=== PATIENT | female | born 1975 | race Caucasian/White ===

== ENCOUNTER 2016-09-12 14:50 | Emergency (ER) | payer OTHER ==
[2016-09-12 14:56] VITALS: BMI 18.3
[2016-09-12] MEDS ORDERED: ACETAMINOPHEN 325 MG TABLET (FP) PO ONE (14:57)
[2016-09-12] MEDS ORDERED: FAMOTIDINE 20 MG/50 ML IVPB 50 ML IVPB ONE ×2 (14:57→15:23)
[2016-09-12] MEDS ORDERED: MAG HYDROX/AL HYDROX/SIMETH 30 ML UNIT-DOSE CUP PO ONE (14:57)
[2016-09-12] MEDS ORDERED: SODIUM CHLORIDE 1,000 ML IV STA (14:57)
--- NOTE | 2016-09-12 15:22 | PDOC ---
[id number] is a 41 year old female with a significant past medical history of of PE a year and a half ago( secondary from childbirth, delivering twins, placed on eliquis at the time ) presents to the emergency department with a complaint of chest pain since two and a half hours ago ago. Patient had woken up in her usual state of health this morning. The Patient was at the supermarket pushing her children and with groceries in two separate strollers when the she had developed a sudden pain in her chest. Patient states the pain was sharp and intense. There was associated numbness and tingling that shot up the left side of her neck. Patient had drank some seltzer water which mildly helped with some of the symptoms. Since the initial development of pain, she has continued to have tightness in her chest , numbness/tingling in her left neck and some pain by her left methodist. Pain is not associated with deep breaths. Movements do not provoke the pain. The pain is not similar to her previous PE. Patient reports some upper abdominal pain. No reports on nausea, vomiting or diarrhea. Denies tobacco use. Patient is currently on antibiotics for a sinus infections. Patient is not on control at this time or extra hormonal. Patient has a family history of heart problems. The patients father had a heart attack in his late 50s. Patient additionally reports having two brothers with heart problems. One brother has an unspecified cardiac problem and the other is on a defibrillator secondary to myocarditis. The patient had an negative echo test recently. PCP: Karen Thomas Office: <Bakari Farmer - Last Filed: 09/12/16 18:32> - General History Source: Patient Exam Limitations: No Limitations <William Lopez - Last Filed: 09/20/16 07:05> - General Chief Complaint: Chest Pain Stated Complaint: CHEST PAIN Time Seen by Provider: 09/12/16 14:54 Past History <Bakari Farmer - Last Filed: 09/12/16 18:32> - Past Medical History Kidney Stones: Yes Psychiatric Problems: Yes (ANXIETY) Other medical history: PE, CHRONIC LYME - Immunization History Immunization Up to Date: Yes - Psycho/Social/Smoking Cessation Hx Anxiety: No Suicidal Ideation: No Smoking Status: No Smoking History: Never smoked Have you smoked in the past 12 months: No Number of Cigarettes Smoked Daily: 0 Information on smoking cessation initiated: No Hx Alcohol Use: No Drug/Substance Use Hx: No Substance Use Type: None <JessicaWilliam - Last Filed: 09/20/16 07:05> - Past Medical History Allergies/Adverse Reactions: Allergies Allergy/AdvReac Type Severity Reaction Status Date / Time doxycycline Allergy Verified 11/21/15 11:57 Penicillins Allergy Verified 11/21/15 11:56 Sulfa (Sulfonamide Allergy Verified 08/25/11 18:32 Antibiotics) Home Medications: Ambulatory Orders Citalopram Hydrobromide [Celexa -] 20 mg PO DAILY 09/12/16 Review of Systems - Review of Systems Able to Perform ROS?: Yes Comments:: 09/12/16 15:26 GENERAL/CONSTITUTIONAL: No fever or chills. No weakness. HEAD, EYES, EARS, NOSE AND THROAT: No change in vision. No ear pain or discharge. No sore throat. CARDIOVASCULAR: Yes chest pain. No shortness of breath. RESPIRATORY: No cough, wheezing, or hemoptysis. GASTROINTESTINAL: No nausea, vomiting, diarrhea or constipation. GENITOURINARY: No dysuria, frequency, or change in urination. MUSCULOSKELETAL: No joint or muscle swelling or pain. No neck or back pain. SKIN: No rash NEUROLOGIC: Yes: Numbness and tingling left side of neck. Yes headache. No vertigo, loss of consciousness, or change in strength. ENDOCRINE: No increased thirst. No abnormal weight change. HEMATOLOGIC/LYMPHATIC: No anemia, easy bleeding, or history of blood clots. ALLERGIC/IMMUNOLOGIC: No hives or skin allergy. Is the patient limited Hungarian proficient: No <Bakari Farmer - Last Filed: 09/12/16 18:32> *Physical Exam - Vital Signs Last Vital Signs Temp Pulse Resp BP Pulse Ox 98.2 F 89 18 112/76 100 09/12/16 14:50 09/12/16 14:50 09/12/16 14:50 09/12/16 14:50 09/12/16 14:50 - Physical Exam Comments: 09/12/16 15:27 GENERAL: Awake, alert, and fully oriented, in no acute distress HEAD: No signs of trauma EYES: PERRLA, EOMI, sclera anicteric, conjunctiva clear ENT: Auricles normal inspection, hearing grossly normal, nares patent, oropharynx clear without exudates. Moist mucosa NECK: Normal ROM, supple, no lymphadenopathy, JVD, or masses LUNGS: Breath sounds equal, clear to auscultation bilaterally. No wheezes, and no crackles HEART: Regular rate and rhythm, normal S1 and S2, no murmurs, rubs or gallops ABDOMEN: Soft, nontender, normoactive bowel sounds. No guarding, no rebound. No masses EXTREMITIES: Normal range of motion, no edema. No clubbing or cyanosis. No cords, erythema, or tenderness NEUROLOGICAL: Cranial nerves II through XII grossly intact. Normal speech, normal gait SKIN: Warm, Dry, normal turgor, no rashes or lesions noted. <aBkari Farmer - Last Filed: 09/12/16 18:32> - Vital Signs Last Vital Signs Temp Pulse Resp BP Pulse Ox 98.2 F 89 18 112/76 100 09/12/16 14:50 09/12/16 14:50 09/12/16 14:50 09/12/16 14:50 09/12/16 14:50 <William Lopez - Last Filed: 09/20/16 07:05> Heart Score/ECG Review - History History: Slightly suspicious - Electrocardiogram EKG: Non specific repolarization disturbance - Age Age: </= 45 - Risk Factors Based on the list above the patient has:: No risk factors known - Troponin Troponin: </= normal limit - Score Heart Score - Total: 1 #1 ECG reviewed & interpreted by me at: 15:05 09/12/16 16:03 NSR 77, incomplete RBBB, no std/minor, normal axis, normal intervals, QTC 454 msec <William Lopez - Last Filed: 09/20/16 07:05> ED Treatment Course - LABORATORY CBC & Chemistry Diagram: 09/12/16 15:15 09/12/16 15:15 - RADIOLOGY Radiology Studies Ordered: 09/12/16 18:[address] Impression: No CT evidence of pulmonary embolism Small right upper lobe calcified granuloma 3-4 noncalcified right lower lobe nodule. Reported by Luis Marin <Bakari Farmer - Last Filed: 09/12/16 18:32> - LABORATORY CBC & Chemistry Diagram: 09/12/16 15:15 09/12/16 15:15 - RADIOLOGY Radiology Studies Ordered: Category Date Time Status CHEST CTA [CT] Stat CT Scan 09/12/16 15:18 Ordered <William Lopez - Last Filed: 09/20/16 07:05> Medical Decision Making - Medical Decision Making 09/12/16 16:13 A portion of this note was documented by scribe services under my direction. I have reviewed the details of the note, within reason, and agree with the documentation with the following case summary and management plan written by me. Patient treated in the ED. Nursing notes are reviewed and incorporated into the medical decision-making. Vital signs reviewed. Peripheral IV access obtained by the nurse, laboratory studies are drawn and sent, reviewed and interpreted by myself. Vital Signs Temp Pulse Resp BP Pulse Ox 98.2 F 89 18 112/76 100 09/12/16 14:50 09/12/16 14:50 09/12/16 14:50 09/12/16 15:30 09/12/16 14:50 41 year old female with history of factor V Leiden deficiency, hx of PEs but not on anticoagulants presents with sharp midsternal chest pain radiating to neck. The patient reports that she was feeling well this morning. In the afternoon, after the patient was pushing a cart, the patient noted a sudden onset of midsternal sharp pain. Not pleuritic but radiates to neck. Denies shortness of breath, nausea, vomiting, diaphoresis. Pt reports that she has older brothers in their late 40s and early 50s with cardiac disease (including one with defibrillator). Pt thought it was her acid reflux, but came into the ED after it kept on persisting. During interview, pt reports feeling moderately better without intervention. The patient's history is atypical for acute coronary syndrome. However, will send troponin. The ECG demonstrates no acute ischemic findings. What is more potentially concerning is PE given sharp chest pain and hx of factor V Leiden deficiency. Will obtain CTA chest to r/o PE and reassess. 09/12/16 18:55 CBC, BMP 09/12/16 15:15 09/12/16 15:15 CMP Sodium 135 mmol/L (136-145) L 09/12/16 15:15 Potassium 3.3 mmol/L (3.5-5.1) L 09/12/16 15:15 Chloride 102 mmol/L (98-107) 09/12/16 15:15 Carbon Dioxide 30 mmol/L (22-28) H 09/12/16 15:15 Anion Gap 3 (8-16) L 09/12/16 15:15 BUN 19 mg/dl (7-18) H 09/12/16 15:15 Creatinine 0.6 mg/dl (0.6-1.3) 09/12/16 15:15 Creat Clearance w eGFR > 60 (>60) 09/12/16 15:15 Random Glucose 99 mg/dl (74-106) D 09/12/16 15:15 Calcium 8.9 mg/dl (8.4-10.2) 09/12/16 15:15 Total Bilirubin 0.6 mg/dl (0.2-1.0) D 09/12/16 15:15 AST 25 U/L (10-42) 09/12/16 15:15 ALT 32 U/L (10-40) 09/12/16 15:15 Alkaline Phosphatase 57 U/L (32-92) D 09/12/16 15:15 Creatine Kinase 88 IU/L (26-140) 09/12/16 17:45 Troponin I < 0.03 ng/ml (0.03-0.50) L 09/12/16 17:45 Total Protein 6.9 g/dl (6.4-8.3) 09/12/16 15:15 Albumin 4.2 g/dl (3.5-5.0) 09/12/16 15:15 Serum , Qual Negative 09/12/16 15:15 Pt had two negative troponins and Chest CTA that demonstrated no PE. Pt informed of the R lower nodule. The patient reports feeling better. Copy of the results given to her. She will follow up with her doctor. Discharge diagnosis: atypical chest pain. <William Lopez - Last Filed: 09/20/16 07:05> *DC/Admit/Observation/Transfer - Attestations Scribe Attestion: 09/12/16 15:27 Documentation prepared by Bakari Farmer, acting as lpn medical assistant for William Lopez MD <Bakari Farmer - Last Filed: 09/12/16 18:32> - Discharge Dispostion Admit: No <William Lopez - Last Filed: 09/20/16 07:05> Diagnosis at time of Disposition: Atypical chest pain - Discharge Dispostion Disposition: HOME Condition at time of disposition: Improved - Referrals Referrals: Karen Thomas MD [Primary Care Provider] - Ayad Quinteros MD [Staff Physician] - - Patient Instructions Printed Discharge Instructions: DI for Atypical Chest Pain Additional Instructions: Please make an appointment with the [facility]. Call to schedule an appointment. Attach is a copy of your EKG, CT scan of your chest, and your blood work. If you have worsening chest pain, or shortness of breath, please return to the ER.
[2016-09-12] MEDS ORDERED: MAG HYDROX/AL HYDROX/SIMETH 30 ML UNIT-DOSE CUP ONE (15:23)
[2016-09-12] MEDS ORDERED: ACETAMINOPHEN 325 MG TABLET (FP) ONE (15:23)
[2016-09-12 15:32] LABS: BASOPHIL 1.5 % (0-2.0); MCH 25.6 pg (25.7-33.7); MCHC 33.3 g/dl (32.0-36.0); MEAN PLT VOLUME 8.2 fl (7.5-11.1); NEUTROPHILS 49.4 % (42.8-82.8); PLATELET COUNT 269 K/MM3 (134-434); RDW 12.9 % (11.6-15.6); WHITE BLOOD COUNT 4.8 K/mm3 (4.0-10.0)
[2016-09-12 15:57] LABS: ACTIVATED PTT 28.3 SECONDS (24.0-38.9)
[2016-09-12 16:01] LABS: ALBUMIN 4.2 g/dl (3.5-5.0); ALK PHOS 57 U/L (32-92); ANION GAP 3 (8-16); BILIRUBIN,TOTAL 0.6 mg/dl (0.2-1.0); CALCIUM 8.9 mg/dl (8.4-10.2); CO2 30 mmol/L (22-28); CPK(DFH) 110 IU/L (26-140); CREATININE 0.6 mg/dl (0.6-1.3); GLUCOSE,RANDOM 99 mg/dl (74-106); INR 1.06 (0.82-1.09); PROTHROMBIN TIME (PATIENT) 11.8 SEC (10.2-13.0); SGOT/AST 25 U/L (10-42); SGPT/ALT 32 U/L (10-40); TOT PROT 6.9 g/dl (6.4-8.3)
[2016-09-12] MEDS ORDERED: POTASSIUM CHLORIDE TABS 20 MEQ TABLET.ER (FP) PO ONE ×2 (16:12→16:20)
[2016-09-12 17:13] LABS: TROPONIN I (DFP) < 0.03 ng/ml (0.03-0.50)
[2016-09-12 18:40] LABS: CPK(DFH) 88 IU/L (26-140)
[2016-09-12 18:51] LABS: TROPONIN I (DFP) < 0.03 ng/ml (0.03-0.50)
[2016-09-12 19:07] VITALS: BP 108/65; PULSE 84; TEMP 98.1
--- NOTE | 2016-09-14 12:40 | EKG ---
Test Reason : Blood Pressure : / mmHG Vent. Rate : 077 BPM Atrial Rate : 077 BPM P-R Int : 160 ms QRS Dur : 102 ms QT Int : 402 ms P-R-T Axes : 070 018 054 degrees QTc Int : 454 ms NORMAL SINUS RHYTHM INCOMPLETE RIGHT BUNDLE BRANCH BLOCK BORDERLINE ECG NO PREVIOUS ECGS AVAILABLE Confirmed by WILFREDO SIEGEL MD ([id number]) on 09/14/2016 12:40:09 PM Referred By: OSMANI Confirmed By:WILFREDO SIEGEL MD
== END 2016-09-12 19:05 | disposition home or self-care (01) ==
LOC: FER 14:50
PROC: 3E033GC Introduction of Other Therapeutic Substance into Peripheral Vein, Percutaneous Approach (ICD-10-PCS; principal; 2016-09-12)
PROC: 3E0337Z Introduction of Electrolytic and Water Balance Substance into Peripheral Vein, Percutaneous Approach (ICD-10-PCS; 2016-09-12)
DX: R07.89 Other chest pain (principal); Z86.711 Personal history of pulmonary embolism; Z79.01 Long term (current) use of anticoagulants; D68.51 Activated protein C resistance; F41.9 Anxiety disorder, unspecified; A69.20 Lyme disease, unspecified
CPT/HCPCS: 36415; 71275-TC; 80053; 82550; 84484; 84703; 85025; 85610; 85730; 93005; 99285-25